=== PATIENT | female | born 1955 | race Caucasian/White ===

== ENCOUNTER 2018-04-23 22:59 | Inpatient (IN) | payer MEDICAID ==
[~2018-04-23] VITALS: Ht 170.2 cm; Wt 68.3 kg
[2018-04-23] MEDS ORDERED: ALBUTEROL SULFATE 2.5 MG/3 ML ONE (23:22)
[2018-04-23 23:30] LABS: BASOPHILS # (AUTO) 0.07 x10^3/uL (0-0.1); BASOPHILS % (AUTO) 1 % (0-1); EOSINOPHILS # (AUTO) 0.09 x10^3/uL (0-0.4); EOSINOPHILS % (AUTO) 2 % (1-7); LYMPHOCYTES # (AUTO) 2.59 x10^3/uL (1-3.4); LYMPHOCYTES % (AUTO) 45 % (22-44); MD NO; MEAN CORPUSCULAR HGB CONC 34.2 g/dL (32.4-35.8); MEAN CORPUSCULAR VOLUME 93.4 fL (80-100); MEAN PLATELET VOLUME 9.7 fL (7.4-10.4); MONOCYTES # (AUTO) 0.38 x10^3/uL (0.2-0.8); MONOCYTES % (AUTO) 7 % (2-9); NEUTROPHILS # (AUTO) 2.62 x10^3/uL (1.8-6.8); NEUTROPHILS % (AUTO) 46 % (42-75); PLATELET COUNT 217 x10^3/uL (130-400); RED BLOOD COUNT 4.81 x10^6/uL (3.82-5.3); RED CELL DISTRIBUTION WIDTH 14.1 % (9.6-15.2)
[2018-04-23] MEDS ORDERED: ALBUTEROL SULFATE 2.5 MG/3 ML NPPB ONE (23:30)
[2018-04-23 23:36] LABS: ALBUMIN 3.2 g/dL (3.4-5.0); ANION GAP 11 mmol/L (5-15); CALCIUM 8.7 mg/dL (8.5-10.1); CHLORIDE 117 mmol/L (98-107)
[2018-04-24] MEDS ORDERED: THIAMINE 100 MG, MVI ADULT 10 ML, FOLIC ACID 1 MG in D5%-0.9% NACL 1,000 ML IV SCH (00:30)
[2018-04-24] MEDS ORDERED: LORazepam 2 MG/ML, 1ML IVPush PRN (00:30)
[2018-04-24] MEDS ORDERED: ALBUTEROL SULFATE 2.5 MG/3 ML NPPB PRN (00:30)
[2018-04-24] MEDS: methylPREDNISolone SOD SUCC 40 MG/ML IVPush SCH ×4 (02:00→20:18)
[2018-04-24] MEDS ORDERED: D5%-0.45NACL+KCL 20MEQ 1,000 ML IV SCH (06:00)
[2018-04-24 06:32] LABS: ALBUMIN 3.2 g/dL (3.4-5.0); ANION GAP 8 mmol/L (5-15); CALCIUM 8.7 mg/dL (8.5-10.1); CHLORIDE 114 mmol/L (98-107); CREATININE 0.76 mg/dL (0.55-1.02)
[2018-04-24 07:24] VITALS: BP 156/96
[2018-04-24] MEDS: ENOXAPARIN 40 MG/0.4 ML SQ SCH (07:59)
[2018-04-24] MEDS: ACETAMINOPHEN 325 MG TABLET PO PRN ×2 (08:00→15:44)
[2018-04-24 13:27] VITALS: BP 168/84
[2018-04-24] MEDS ORDERED: SODIUM CHLORIDE 0.9% 1,000 ML IV SCH (14:00)
[2018-04-24] MEDS ORDERED: POTASSIUM CHLORIDE 20 MEQ TAB.ER.PRT PO ONE (14:00)
[2018-04-24] MEDS ORDERED: POTASSIUM PHOSPHATE 44 MEQ in SODIUM CHLORIDE 0.9% 500 ML IV ONE (14:00)
[2018-04-24] MEDS ORDERED: MAGNESIUM SULFATE PMX 2GM/50ML 50 ML IV ONE (14:00)
[2018-04-24 19:31] VITALS: BP_SYST 170; BP_SYST 190; BP_DIAS 108; BP_DIAS 110
[2018-04-24] MEDS: hydrALAzine 20 MG/ML, 1ML IVPush PRN (19:34)
[2018-04-24 21:28] VITALS: BP 162/81
[2018-04-25 00:48] VITALS: BP_SYST 174; BP_SYST 180; BP_DIAS 83; BP_DIAS 94
[2018-04-25] MEDS: hydrALAzine 20 MG/ML, 1ML IVPush PRN (00:54)
[2018-04-25] MEDS: methylPREDNISolone SOD SUCC 40 MG/ML IVPush SCH (01:53)
[2018-04-25 05:14] LABS: MEAN CORPUSCULAR HEMOGLOBIN 30.8 pg (27.0-34.8); MEAN CORPUSCULAR HGB CONC 32.9 g/dL (32.4-35.8); MEAN CORPUSCULAR VOLUME 93.7 fL (80-100); PLATELET COUNT 202 x10^3/uL (130-400); RED BLOOD COUNT 5.06 x10^6/uL (3.82-5.3); RED CELL DISTRIBUTION WIDTH 13.9 % (9.6-15.2)
[2018-04-25 05:23] LABS: ALBUMIN 3.3 g/dL (3.4-5.0); ANION GAP 7 mmol/L (5-15); CALCIUM 9.4 mg/dL (8.5-10.1); CHLORIDE 111 mmol/L (98-107); CREATININE 0.69 mg/dL (0.55-1.02)
[2018-04-25 06:17] LABS: BASOPHILS # (AUTO) 0.01 x10^3/uL (0-0.1); BASOPHILS % (AUTO) 0 % (0-1); EOSINOPHILS % (AUTO) 0 % (1-7); LYMPHOCYTES # (AUTO) 0.72 x10^3/uL (1-3.4); LYMPHOCYTES % (AUTO) 4 % (22-44); MD SCAN; MONOCYTES # (AUTO) 0.24 x10^3/uL (0.2-0.8); MONOCYTES % (AUTO) 1 % (2-9); NEUTROPHILS # (AUTO) 16.69 x10^3/uL (1.8-6.8); NEUTROPHILS % (AUTO) 95 % (42-75)
[2018-04-25 08:02] VITALS: BP 163/85
[2018-04-25] MEDS: ENOXAPARIN 40 MG/0.4 ML SQ SCH (10:05)
[2018-04-25] MEDS ORDERED: CLON0.1T12 PO (11:46)
[2018-04-25] MEDS ORDERED: ALBU8.5H8 INH (11:46)
[2018-04-25 13:06] VITALS: BP 143/82
== END 2018-04-25 14:32 | disposition home or self-care (01) | DRG 189 ==
LOC: SUATTDRO 04-24 00:19 → ED 04-24 00:37 → 4NOR 04-24 00:38
PROVIDERS: ADMIT Hospitalist; ATTEND Hospitalist
DX: J96.01 Acute respiratory failure with hypoxia (principal); J44.1 Chronic obstructive pulmonary disease with (acute) exacerbation; E44.0 Moderate protein-calorie malnutrition; E87.0 Hyperosmolality and hypernatremia; E87.1 Hypo-osmolality and hyponatremia; F41.9 Anxiety disorder, unspecified; D72.829 Elevated white blood cell count, unspecified; F10.129 Alcohol abuse with intoxication, unspecified; F17.200 Nicotine dependence, unspecified, uncomplicated; I10 Essential (primary) hypertension; Z71.6 Tobacco abuse counseling; F19.90 Other psychoactive substance use, unspecified, uncomplicated; Z68.23 Body mass index [BMI] 23.0-23.9, adult
CPT/HCPCS: 36415; J7042; J7613; 71045; 80048; 82040; 83735; 84100; 85025; 93005; 99285; G0378; J1650; J3411; J0360; J2920; J3475; J3480; J7030; J7040; J7512

== ENCOUNTER 2018-12-28 07:49 | Inpatient (IN) | payer MEDICAID ==
[~2018-12-28] VITALS: Ht 162.6 cm; Wt 71.6 kg
[~2018-12-28 07:49] MED LIST: ALBU8.5H8 INH; CLON0.1T12 PO
[2018-12-28 08:21] LABS: MICROSCOPIC NOT IND
[2018-12-28 08:25] LABS: CULTURE INDICATED? NO
--- NOTE | 2018-12-28 09:17 | NUR ---
Pt pushed in ED wheelchair from lobby to room. Pt resting on gurney with both bed rails up for safety measures and connected to NIBP, continous pulse ox, and pvc monitor. Pt is at 85-88% on pulse ox on room air. Placed pt on 4 L nc oxygen to maintain above 90%. Pt is tacycardic and tacypnea with hr at 120 and rr at 36. Call light within reach. Pt denies cp, n/v/d, trauma, or syncope. Pt c/o pain under ribs worsened by coughing, body aches, fevers, chills, "for a couple of days."
[2018-12-28] MEDS ORDERED: SODIUM CHLORIDE FLUSH 10ML SYR IVF ONE (09:30)
[2018-12-28] MEDS ORDERED: CEFTRIAXONE PMX 1GM/50ML 50 ML IVPB ONE (09:30)
--- NOTE | 2018-12-28 10:13 | NUR ---
IV ESTABLISHED. AWAITING SECOND CULTURE TO START ANTIBIOTICS ORDERED. PT HAS COUGH THAT CAUSES CP AND NOT FEELING WELL.
[2018-12-28 10:19] LABS: MEAN CORPUSCULAR HEMOGLOBIN 31.2 pg (27.0-34.8); MEAN CORPUSCULAR HGB CONC 33.8 g/dL (32.4-35.8); MEAN CORPUSCULAR VOLUME 92.3 fL (80-100); MEAN PLATELET VOLUME 9.6 fL (7.4-10.4); PLATELET COUNT 163 x10^3/uL (130-400); RED BLOOD COUNT 4.94 x10^6/uL (3.82-5.3); RED CELL DISTRIBUTION WIDTH 13.7 % (9.6-15.2)
[2018-12-28] MEDS ORDERED: CEFTRIAXONE PMX 1GM/50ML 50 ML ONE (10:24)
[2018-12-28] MEDS ORDERED: MORPHINE SULFATE 4 MG/ML, 1ML IVPush PRN (10:30)
[2018-12-28] MEDS ORDERED: ONDANSETRON 2MG/ML, 2ML IVPush ONE (10:30)
[2018-12-28] MEDS ORDERED: ONDANSETRON 2MG/ML, 2ML ONE (10:33)
[2018-12-28] MEDS ORDERED: MORPHINE SULFATE 4 MG/ML, 1ML ONE (10:34)
[2018-12-28 10:35] LABS: CHLORIDE 101 mmol/L (98-107)
[2018-12-28 10:41] LABS: ALANINE AMINOTRANSFERASE 18 U/L (12-78); ALBUMIN 3.2 g/dL (3.4-5.0); ALKALINE PHOSPHATASE 124 U/L (45-117); ANION GAP 10 mmol/L (5-15); BILIRUBIN,TOTAL 1.9 mg/dL (0.2-1.0); CALCIUM 9.1 mg/dL (8.5-10.1); CREATININE 0.96 mg/dL (0.55-1.02); TOTAL PROTEIN 7.2 g/dL (6.4-8.2)
[2018-12-28 10:47] LABS: MD YES
[2018-12-28 10:48] LABS: BAND#(MANUAL) 6.32 x10^3/uL; BANDS%(MANUAL) 29 % (0-7); LYMPH#(MANUAL) 0.22 x10^3/uL (1-3.4); LYMPHS% (MANUAL) 1 % (22-44); METAMYELOCYTES# (MANUAL) 0.22 x10^3/uL (0-0); METAMYELOCYTES% (MANUAL) 1 % (0-1); MONOS#(MANUAL) 1.31 x10^3/uL (0.3-2.7); MONOS% (MANUAL) 6 % (2-9); SEG#(MANUAL) 13.73 x10^3/uL (1.8-6.8); SEGS% (MANUAL) 63 % (42-75)
--- NOTE | 2018-12-28 10:48 | NUR ---
PT MOVED TO ROOM 2. REPORT TO PATRICIO
[2018-12-28 10:49] LABS: <RBC MORPHOLOGY> NORMAL; PMNS WITH VACUOLES 1+
[2018-12-28 10:50] LABS: <PLATELET ESTIMATE> ADEQUATE; LARGE PLATELETS 1+
--- NOTE | 2018-12-28 11:05 | NUR ---
PT FEELS MORE COMFORTABLE SINCE MEDICATED FOR SAME
--- NOTE | 2018-12-28 11:34 | NUR ---
REPORT TO CHERELLE PATEL. TO BE TRANSPORTED TO FLOOR
[2018-12-28] MEDS ORDERED: ONDANSETRON 2MG/ML, 2ML IVPush PRN (13:00)
[2018-12-28] MEDS ORDERED: ONDANSETRON ODT 4 MG PO PRN (13:00)
[2018-12-28] MEDS ORDERED: LORazepam 2 MG/ML, 1ML IV PRN ×3 (13:30)
[2018-12-28] MEDS ORDERED: MAGNESIUM CITRATE 300ML ORAL SOL PO ONE (13:30)
[2018-12-28] MEDS ORDERED: LORazepam 1MG TABLET PO PRN ×2 (13:30)
[2018-12-28] MEDS ORDERED: LORazepam 0.5MG TABLET PO PRN (13:30)
[2018-12-28] MEDS: SODIUM CHLORIDE 0.9% 1,000 ML IV SCH (14:03)
[2018-12-28] MEDS: NICOTINE 14MG/24 HR PATCH.TD24 TD SCH (14:04)
[2018-12-28 14:05] VITALS: BP 108/68
[2018-12-28] MEDS: ENOXAPARIN 40 MG/0.4 ML SQ SCH (14:05)
[2018-12-28] MEDS: KETOROLAC 30 MG/1 ML IV PRN (14:16)
[2018-12-28] MEDS: ALBUTEROL/IPRATROPIUM 2.5MG/0.5MG, 3 ML NPPB PRN (16:06)
[2018-12-28 20:34] VITALS: BP 100/65
[2018-12-29] MEDS: ACETAMINOPHEN 325 MG TABLET PO PRN ×3 (00:14→20:03)
[2018-12-29 02:16] VITALS: BP 105/62
[2018-12-29] MEDS: SODIUM CHLORIDE 0.9% 1,000 ML IV SCH ×2 (04:51→20:03)
[2018-12-29] MEDS: KETOROLAC 30 MG/1 ML IV PRN ×3 (04:59→23:08)
[2018-12-29 05:56] LABS: MEAN CORPUSCULAR HEMOGLOBIN 31.1 pg (27.0-34.8); MEAN CORPUSCULAR HGB CONC 33.2 g/dL (32.4-35.8); MEAN CORPUSCULAR VOLUME 93.7 fL (80-100); MEAN PLATELET VOLUME 9.7 fL (7.4-10.4); PLATELET COUNT 122 x10^3/uL (130-400); RED BLOOD COUNT 4.35 x10^6/uL (3.82-5.3); RED CELL DISTRIBUTION WIDTH 14.2 % (9.6-15.2)
[2018-12-29 06:02] LABS: ANION GAP 6 mmol/L (5-15); CALCIUM 9.1 mg/dL (8.5-10.1); CHLORIDE 105 mmol/L (98-107); CREATININE 1.02 mg/dL (0.55-1.02)
[2018-12-29 06:57] VITALS: BP 93/60
[2018-12-29] MEDS: INSULIN LISPRO 100 UNITS/ML, PEN SQ-INSULIN SCH ×4 (07:00→19:59)
[2018-12-29 07:32] LABS: MD YES
[2018-12-29 07:33] LABS: BAND#(MANUAL) 5.97 x10^3/uL; BANDS%(MANUAL) 30 % (0-7); EOS% (MANUAL) 1 % (1-7); LYMPH#(MANUAL) 1.19 x10^3/uL (1-3.4); LYMPHS% (MANUAL) 6 % (22-44); METAMYELOCYTES% (MANUAL) 4 % (0-1); MONOS#(MANUAL) 1.99 x10^3/uL (0.3-2.7); MONOS% (MANUAL) 10 % (2-9); SEG#(MANUAL) 9.75 x10^3/uL (1.8-6.8); SEGS% (MANUAL) 49 % (42-75)
[2018-12-29 07:34] LABS: <PLATELET ESTIMATE> DECREASED; <PLT MORPHOLOGY> NORMAL PLT MORPH; <RBC MORPHOLOGY> NORMAL
[2018-12-29 07:35] LABS: TOXIC GRAN 1+
[2018-12-29] MEDS: CEFTRIAXONE PMX 1GM/50ML 50 ML IV SCH (08:52)
[2018-12-29] MEDS: BISACODYL 10 MG SUPP PR SCH (09:00)
[2018-12-29 12:45] LABS: AMPHETAMINE SCREEN, URINE Positive (Negative); BARBITURATE SCREEN, URINE Negative (Negative); BENZODIAZEPINE SCREEN, URINE Negative (Negative); CANNABINOID SCREEN, URINE Negative (Negative); COCAINE SCREEN, URINE Negative (Negative); METHADONE SCREEN, URINE Negative (Negative); OPIATE SCREEN, URINE Positive (Negative)
[2018-12-29] MEDS: NICOTINE 14MG/24 HR PATCH.TD24 TD SCH (13:06)
[2018-12-29] MEDS: ENOXAPARIN 40 MG/0.4 ML SQ SCH (13:06)
[2018-12-29 13:23] VITALS: BP 98/67
[2018-12-29 20:26] VITALS: BP 117/77
[2018-12-29] MEDS: ALBUTEROL/IPRATROPIUM 2.5MG/0.5MG, 3 ML NPPB PRN (20:33)
[2018-12-29] MEDS: BENZONATATE 100 MG CAPSULE PO SCH (21:32)
[2018-12-30 00:42] VITALS: BP 112/73
[2018-12-30 06:09] LABS: ANION GAP 4 mmol/L (5-15); CALCIUM 8.8 mg/dL (8.5-10.1); CHLORIDE 108 mmol/L (98-107); CREATININE 0.74 mg/dL (0.55-1.02)
[2018-12-30 06:17] LABS: MEAN CORPUSCULAR HGB CONC 32.7 g/dL (32.4-35.8); MEAN CORPUSCULAR VOLUME 94.6 fL (80-100); MEAN PLATELET VOLUME 9.4 fL (7.4-10.4); PLATELET COUNT 139 x10^3/uL (130-400); RED BLOOD COUNT 4.03 x10^6/uL (3.82-5.3)
[2018-12-30 06:22] LABS: HEMOGLOBIN A1C 5.9 % (4.2-6.3)
[2018-12-30 07:57] LABS: MD YES
[2018-12-30 08:00] LABS: BASOS#(MANUAL) 0.12 x10^3/uL (0-0.1); BASOS% (MANUAL) 1 % (0-1); LYMPH#(MANUAL) 1.15 x10^3/uL (1-3.4); LYMPHS% (MANUAL) 10 % (22-44); MONOS#(MANUAL) 0.35 x10^3/uL (0.3-2.7); MONOS% (MANUAL) 3 % (2-9)
[2018-12-30 08:01] LABS: BAND#(MANUAL) 1.73 x10^3/uL; BANDS%(MANUAL) 15 % (0-7); SEG#(MANUAL) 8.17 x10^3/uL (1.8-6.8); SEGS% (MANUAL) 71 % (42-75)
[2018-12-30 08:02] LABS: <RBC MORPHOLOGY> NORMAL; TOXIC GRAN 1+
[2018-12-30 08:03] LABS: <PLATELET ESTIMATE> ADEQUATE; <PLT MORPHOLOGY> NORMAL PLT MORPH
[2018-12-30] MEDS: INSULIN LISPRO 100 UNITS/ML, PEN SQ-INSULIN SCH ×2 (08:06→11:00)
[2018-12-30 08:14] VITALS: BP 141/87
[2018-12-30] MEDS: KETOROLAC 30 MG/1 ML IV PRN (08:19)
[2018-12-30] MEDS: BENZONATATE 100 MG CAPSULE PO SCH (08:19)
[2018-12-30] MEDS: BISACODYL 10 MG SUPP PR SCH (08:25)
[2018-12-30] MEDS: ACETAMINOPHEN 325 MG TABLET PO PRN (08:32)
[2018-12-30] MEDS: CEFTRIAXONE PMX 1GM/50ML 50 ML IV SCH (10:15)
[2018-12-30] MEDS ORDERED: NICO-486 TD (10:33)
[2018-12-30] MEDS ORDERED: DOXY100C2 PO (10:33)
[2018-12-30] MEDS ORDERED: CEFD300C37 PO (10:33)
[2018-12-30] MEDS ORDERED: ACET325T14 PO (10:33)
[2018-12-30] MEDS: ENOXAPARIN 40 MG/0.4 ML SQ SCH (13:30)
[2018-12-30] MEDS: NICOTINE 14MG/24 HR PATCH.TD24 TD SCH (13:33)
== END 2018-12-30 15:28 | disposition home or self-care (01) | DRG 871 ==
LOC: ED 10:55 → EDIP 10:56 → ED 11:05 → 3NE 11:47 → DCLOUNGE 12-30 15:20
PROVIDERS: ADMIT Internal Medicine; ATTEND Internal Medicine
DX: A41.9 Sepsis, unspecified organism (principal); J15.9 Unspecified bacterial pneumonia; B19.10 Unspecified viral hepatitis B without hepatic coma; E87.1 Hypo-osmolality and hyponatremia; J44.0 Chronic obstructive pulmonary disease with (acute) lower respiratory infection; F10.20 Alcohol dependence, uncomplicated; F17.210 Nicotine dependence, cigarettes, uncomplicated; F19.10 Other psychoactive substance abuse, uncomplicated; I10 Essential (primary) hypertension; B19.20 Unspecified viral hepatitis C without hepatic coma; K21.9 Gastro-esophageal reflux disease without esophagitis; K59.03 Drug induced constipation; R65.20 Severe sepsis without septic shock; T40.605A Adverse effect of unspecified narcotics, initial encounter; Z59.0 Homelessness; Z76.5 Malingerer [conscious simulation]; Z88.0 Allergy status to penicillin; Z71.6 Tobacco abuse counseling
CPT/HCPCS: 36415; 36600; 87806; 99285; J7620; 71045; 80048; 80053; 80074; 80307; 81003; 82803; 82962; 83036; 83605; 85025; 87040; 87521; 93005; 94640; 96374; 96375; G0378; J0696; J1650; J1885; J2405; G0475; J1815; J2270; J7030

== ENCOUNTER 2019-01-01 13:04 | Emergency (ER) | payer MEDICAID ==
[~2019-01-01] VITALS: Ht 162.6 cm; Wt 70.8 kg
[~2019-01-01 13:04] MED LIST changes: +ACET325T14 PO; +CEFD300C37 PO; +DOXY100C2 PO; +NICO-486 TD
[2019-01-01 14:23] LABS: MEAN CORPUSCULAR HEMOGLOBIN 30.8 pg (27.0-34.8); MEAN CORPUSCULAR HGB CONC 33.5 g/dL (32.4-35.8); MEAN CORPUSCULAR VOLUME 92.1 fL (80-100); MEAN PLATELET VOLUME 8.7 fL (7.4-10.4); PLATELET COUNT 240 x10^3/uL (130-400); RED BLOOD COUNT 4.48 x10^6/uL (3.82-5.3); RED CELL DISTRIBUTION WIDTH 14.1 % (9.6-15.2)
[2019-01-01 14:32] LABS: ALBUMIN 3.2 g/dL (3.4-5.0); ANION GAP 7 mmol/L (5-15); CALCIUM 9.7 mg/dL (8.5-10.1); CHLORIDE 107 mmol/L (98-107)
[2019-01-01 14:38] LABS: ALANINE AMINOTRANSFERASE 48 U/L (12-78); ALKALINE PHOSPHATASE 157 U/L (45-117); BILIRUBIN,TOTAL 0.9 mg/dL (0.2-1.0); CREATININE 0.61 mg/dL (0.55-1.02); TOTAL PROTEIN 7.5 g/dL (6.4-8.2); TROPONIN I < 0.015 ng/mL (0.000-0.045)
[2019-01-01 14:52] LABS: BASOPHILS # (AUTO) 0.04 x10^3/uL (0-0.1); BASOPHILS % (AUTO) 0 % (0-1); EOSINOPHILS # (AUTO) 0.08 x10^3/uL (0-0.4); EOSINOPHILS % (AUTO) 1 % (1-7); LYMPHOCYTES # (AUTO) 0.81 x10^3/uL (1-3.4); LYMPHOCYTES % (AUTO) 9 % (22-44); MD SCAN; MONOCYTES # (AUTO) 1.02 x10^3/uL (0.2-0.8); MONOCYTES % (AUTO) 12 % (2-9); NEUTROPHILS # (AUTO) 6.87 x10^3/uL (1.8-6.8); NEUTROPHILS % (AUTO) 78 % (42-75)
--- NOTE | 2019-01-01 15:13 | NUR ---
THERAPEUTIC RECREATION ASSISTANT: PT TO ROOM FROM LOBBY, UPRIGHT STEADY GAIT.
--- NOTE | 2019-01-01 15:22 | NUR ---
First contact with pt. Pt c/o burning and blisters in mouth starting today. Pt states she has been taking the abx prescribed for her PNA. Pt placed in gown, positioned for comfort in bed with warm blankets. Continuous heart, oxygen and BP Monitors applied, all safety measures observed.
[2019-01-01 15:23] VITALS: BP 149/92
== END 2019-01-01 15:58 | disposition home or self-care (01) ==
LOC: ED 15:51
DX: B37.9 Candidiasis, unspecified (principal); J15.9 Unspecified bacterial pneumonia; I10 Essential (primary) hypertension; J44.9 Chronic obstructive pulmonary disease, unspecified
CPT/HCPCS: 36415; 71046; 80053; 84484; 85025; 93005; 99284

== ENCOUNTER 2020-04-25 11:03 | Emergency (ER) | payer MEDICAID ==
[~2020-04-25] VITALS: Ht 162.6 cm; Wt 80.6 kg
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
[2020-04-25] MEDS ORDERED: METHOCARBAMOL 750 MG TABLET PO ONE (11:30)
[2020-04-25] MEDS ORDERED: KETOROLAC 30 MG/1 ML IM ONE (11:30)
[2020-04-25] MEDS ORDERED: METHOCARBAMOL 750 MG TABLET ONE (11:35)
--- NOTE | 2020-04-25 11:39 | NUR ---
UNABLE TO VOID AT THIS TIME. PROVIDED WATER TO PT.
--- NOTE | 2020-04-25 11:47 | NUR ---
LAB AT BEDSIDE.
[2020-04-25 12:00] LABS: BASOPHILS # (AUTO) 0.06 x10^3/uL (0-0.1); BASOPHILS % (AUTO) 1 % (0-1); EOSINOPHILS # (AUTO) 0.08 x10^3/uL (0-0.4); EOSINOPHILS % (AUTO) 2 % (1-7); HCT (SEDRATE) 45.2 % (34.6-47.8); LYMPHOCYTES # (AUTO) 1.06 x10^3/uL (1-3.4); LYMPHOCYTES % (AUTO) 24 % (22-44); MD NO; MEAN CORPUSCULAR HEMOGLOBIN 30.4 pg (27.0-34.8); MEAN CORPUSCULAR HGB CONC 33.5 g/dL (32.4-35.8); MEAN CORPUSCULAR VOLUME 90.9 fL (80-100); MEAN PLATELET VOLUME 9.2 fL (7.4-10.4); MONOCYTES # (AUTO) 0.63 x10^3/uL (0.2-0.8); MONOCYTES % (AUTO) 14 % (2-9); NEUTROPHILS # (AUTO) 2.61 x10^3/uL (1.8-6.8); NEUTROPHILS % (AUTO) 59 % (42-75); PLATELET COUNT 122 x10^3/uL (130-400); RED BLOOD COUNT 4.98 x10^6/uL (3.82-5.3); RED CELL DISTRIBUTION WIDTH 14.3 % (9.6-15.2)
[2020-04-25 12:06] LABS: ALBUMIN 3.4 g/dL (3.4-5.0); ANION GAP 6 mmol/L (5-15); CHLORIDE 109 mmol/L (98-107); CREATININE 0.76 mg/dL (0.55-1.02)
[2020-04-25] MEDS ORDERED: KETOROLAC 30 MG/1 ML ONE (12:13)
[2020-04-25 12:26] LABS: MICROSCOPIC NOT IND
--- NOTE | 2020-04-25 12:53 | NUR ---
PT SLEEPING IN NAD, EVEN AND UNLABORED RESPIRATIONS. VSS.
[2020-04-25 13:27] VITALS: BP 120/83
== END 2020-04-25 13:33 | disposition home or self-care (01) ==
LOC: ED 13:13
DX: M54.5 Low back pain (principal); R10.32 Left lower quadrant pain; R50.9 Fever, unspecified; R11.2 Nausea with vomiting, unspecified; M79.10 Myalgia, unspecified site; I10 Essential (primary) hypertension; J44.9 Chronic obstructive pulmonary disease, unspecified
CPT/HCPCS: 36415; 80048; 81003; 82040; 85025; 85651; 96372; 99283; J1885

== ENCOUNTER 2020-06-10 13:41 | Emergency (ER) | payer MEDICAID ==
[~2020-06-10] VITALS: Ht 162.6 cm; Wt 80.6 kg
--- NOTE | 2020-06-10 15:49 | NUR ---
pt to room from lobby
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
[2020-06-10] MEDS ORDERED: ACETAMINOPHEN 500 MG TABLET PO ONE (16:30)
--- NOTE | 2020-06-10 16:52 | NUR ---
report from margaret [email or web address]. as
--- NOTE | 2020-06-10 16:53 | NUR ---
pt at xr. as
--- NOTE | 2020-06-10 16:53 | NUR ---
REPORT GIVEN TO AMANDA BARAJAS. PT IN RADIOLOGY.
[2020-06-10] MEDS ORDERED: ACETAMINOPHEN 500 MG TABLET ONE (17:35)
[2020-06-10 17:39] VITALS: BP 143/89
--- NOTE | 2020-06-10 17:40 | NUR ---
BACK FROM XR, PENDING. APAP PER OCT. CALL BLANCA. DOMENICO.
== END 2020-06-10 18:22 | disposition home or self-care (01) ==
LOC: ED 16:16
DX: S16.1XXA Strain of muscle, fascia and tendon at neck level, initial encounter (principal); S39.012A Strain of muscle, fascia and tendon of lower back, initial encounter; M25.551 Pain in right hip; M25.521 Pain in right elbow; I10 Essential (primary) hypertension; J44.9 Chronic obstructive pulmonary disease, unspecified; Y04.0XXA Assault by unarmed brawl or fight, initial encounter; Y93.89 Activity, other specified; Y92.009 Unspecified place in unspecified non-institutional (private) residence as the place of occurrence of the external cause; Y99.8 Other external cause status
CPT/HCPCS: 72020; 72050; 72190; 99284

== ENCOUNTER 2021-04-02 14:19 | Emergency (ER) | payer MEDICAID ==
[~2021-04-02] VITALS: Ht 162.6 cm; Wt 70.0 kg
[2021-04-02 16:24] VITALS: BP 128/81
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
== END 2021-04-02 16:40 | disposition home or self-care (01) ==
LOC: ED 16:25
DX: S80.01XA Contusion of right knee, initial encounter (principal); M17.11 Unilateral primary osteoarthritis, right knee; J44.9 Chronic obstructive pulmonary disease, unspecified; I10 Essential (primary) hypertension; Z88.0 Allergy status to penicillin; F17.200 Nicotine dependence, unspecified, uncomplicated; W18.30XA Fall on same level, unspecified, initial encounter; Y93.89 Activity, other specified; Y92.89 Other specified places as the place of occurrence of the external cause; Y99.8 Other external cause status
CPT/HCPCS: 99283

== ENCOUNTER 2021-05-01 22:08 | Emergency (ER) | payer MEDICAID ==
[~2021-05-01] VITALS: Ht 162.6 cm; Wt 76.9 kg
[~2021-05-01 22:08] MED LIST changes: -DOXY100C2 PO; +DOXY100C5 PO
[2021-05-01 23:04] LABS: BASOPHILS % (AUTO) 3 % (0-1); EOSINOPHILS % (AUTO) 2 % (1-7); LYMPHOCYTES % (AUTO) 37 % (22-44); MEAN CORPUSCULAR HEMOGLOBIN 31.3 pg (27.0-34.8); MEAN PLATELET VOLUME 9.2 fL (7.4-10.4); MONOCYTES % (AUTO) 10 % (2-9); NEUTROPHILS % (AUTO) 49 % (42-75); PLATELET COUNT 157 x10^3/uL (130-400); RED BLOOD COUNT 4.65 x10^6/uL (3.82-5.3); RED CELL DISTRIBUTION WIDTH 13.5 % (9.6-15.2)
[2021-05-01 23:16] LABS: ALANINE AMINOTRANSFERASE 33 U/L (12-78); ALBUMIN 3.2 g/dL (3.4-5.0); ANION GAP 7 mmol/L (5-15); CALCIUM 8.5 mg/dL (8.5-10.1); CHLORIDE 108 mmol/L (98-107)
[2021-05-01 23:21] LABS: ALKALINE PHOSPHATASE 114 U/L (45-117); BILIRUBIN,TOTAL 0.3 mg/dL (0.2-1.0); CREATININE 1.04 mg/dL (0.55-1.02); TROPONIN I < 0.015 ng/mL (0.000-0.045)
[2021-05-02] MEDS ORDERED: OMNIPAQUE 350 MG/ML, 100ML BOTTLE ONE (00:37)
--- NOTE | 2021-05-02 00:38 | NUR ---
STARTED 20G IN RIGHT BASILIC FOR CT. SENT PT BACK TO ER WITH IV INTACT.
--- NOTE | 2021-05-02 00:42 | NUR ---
PT C/O OF HEADAHE, ABDOMINAL PAIN, N/V AND FEVER CHILLS. MAYTE DEL CID, CP ATTACHED TO ALL MONITORS. VSS. NADN. BED IN LOW. RAILS ENGAGED, CALL LIGHT ON LAP. HEATED BANKETS GIVEN TO PT. WCTM
[2021-05-02 00:47] VITALS: BP 129/83
== END 2021-05-02 01:29 | disposition home or self-care (01) ==
LOC: ED 22:30
DX: J40 Bronchitis, not specified as acute or chronic (principal); Z20.822 Contact with and (suspected) exposure to COVID-19; M79.10 Myalgia, unspecified site; R11.0 Nausea; R05 Cough; R94.31 Abnormal electrocardiogram [ECG] [EKG]; K21.9 Gastro-esophageal reflux disease without esophagitis; I10 Essential (primary) hypertension; J44.9 Chronic obstructive pulmonary disease, unspecified; F17.200 Nicotine dependence, unspecified, uncomplicated
CPT/HCPCS: 36415; 71045; 74177; 80053; 83690; 84484; 85025; 93005; 99285; Q9967